=== PATIENT | female | born 1975 | race Two or more races ===

== ENCOUNTER 2025-01-24 06:03 | Day surgery (SDC) | payer OTHER ==
[2025-01-22 09:39] LABS: URINE APPEARANCE Clear; URINE BILIRRUBIN Negative (NEGATIVE); URINE BLOOD Negative; URINE COLOR Yellow; URINE GLUCOSE Negative (NEGATIVE); URINE KETONE Negative (NEGATIVE); URINE LEUKOCYTE Negative; URINE NITRATE Negative; URINE PROTEIN Negative (NEGATIVE); URINE UROBILINOGEN 0.2 E.U./dl
[2025-01-22 09:41] LABS: URINE BACTERIA 231.2 uL (0.0-1933); URINE EPITHELIAL CELLS 5.3 uL (0.0-38.8); URINE RBC 3.9 uL (0.0-20.8); URINE WBC 3.4 uL (0.0-23.2)
[2025-01-22 09:42] LABS: BASO % 0.4 % (0.1-1.2); EOS # 0.01 (0.04-0.54); EOS % 0.2 % (0.7-7.0); HEMATOCRIT 37.5 % (34.1-44.9); HEMOGLOBIN 11.9 g/dL (11.2-15.7); LYMPH # 1.95 (1.18-3.74); LYMPH % 34.9 % (19.3-53.1); MEAN CORPUSCULAR HEMOGLOBIN 26.4 pg (25.6-32.2); MONO # 0.34 (0.24-0.82); MONO % 6.1 % (4.7-12.5); NEUT # 3.25 (1.56-6.13); NEUT % 58.2 % (34.0-71.1); PLATELET COUNT 313 K/uL (163-369); RED BLOOD COUNT 4.51 M/uL (3.93-5.22); RED CELL DISTRIBUTION WIDTH 14.6 % (11.6-14.4)
[2025-01-22 10:01] LABS: INR 1.04; PARTIAL THROMBOPLASTIN TIME 30.1 SECONDS (22.0-34.0); PROTHROMBIN TIME 11.3 SECONDS (9.0-11.5)
[2025-01-22 10:25] LABS: COVID-19 AG NEGATIVE (NEGATIVE)
[2025-01-22 10:33] VITALS: BP 138/94
[2025-01-22 12:49] LABS: ALBUMIN 3.6 gm/dL (3.4-5.0); BILIRUBIN TOTAL 0.38 mg/dL (0.3-1.2); CALCIUM 9.4 mg/dL (8.5-10.1); CREATININE SERUM 0.64 mg/dL (0.55-1.02); GFR 97.83; POTASSIUM 4.33 mEq/L (3.5-5.1); TOTAL PROTEIN 7.6 gm/dL (6.4-8.2)
[~2025-01-24] VITALS: Ht 160 cm; Wt 73.5 kg
[~2025-01-24 06:03] MED LIST: AMBIEN10 MG PO; AMITRIPTYLINE100 MG PO; ANASTROZOLE1 MG PO
[2025-01-24] MEDS ORDERED: POVIDONE-IODINE SCRUB 118 ML BOTT TOP ONE (07:16)
[2025-01-24] MEDS ORDERED: BUPIVACAINE HCL/MPF 0.5% 30ML VIAL ONE (07:16)
[2025-01-24] MEDS ORDERED: POVIDONE-IODINE 118 ML BOTT TOP ONE ×4 (07:16→09:25)
[2025-01-24] MEDS ORDERED: CEFAZOLIN SODIUM 1,000 MG VIAL ONE (07:17)
[2025-01-24] MEDS ORDERED: GENTAMICIN SULFATE 40 MG/ML VIAL ONE (07:17)
[2025-01-24] MEDS ORDERED: CLINDAMYCIN PHOSPHATE 150 MG/ML (900mg) ONE (07:59)
[2025-01-24] MEDS ORDERED: TRANEXAMIC ACID 100MG/1ML (1000MG) AMPUL IV ONE (09:17)
[2025-01-24] MEDS ORDERED: ONDANSETRON HCL 2 MG/ML VIAL ONE (13:50)
[2025-01-24] MEDS ORDERED: MORPHINE SULFATE 4 MG/ML VIAL IV ONE ×2 (13:50→15:55)
== END 2025-01-24 17:15 | disposition home or self-care (01) ==
LOC: CIR.AMB 06:03
PROVIDERS: ATTEND Surgery
DX: C50.411 Malignant neoplasm of upper-outer quadrant of right female breast (principal); C50.312 Malignant neoplasm of lower-inner quadrant of left female breast; R59.0 Localized enlarged lymph nodes; R92.1 Mammographic calcification found on diagnostic imaging of breast; Z90.13 Acquired absence of bilateral breasts and nipples; N65.1 Disproportion of reconstructed breast

== ENCOUNTER 2025-02-25 06:00 | Day surgery (SDC) | payer OTHER ==
[2025-02-19 10:42] LABS: BASO % 0.5 % (0.1-1.2); EOS # 0.25 (0.04-0.54); EOS % 4.2 % (0.7-7.0); LYMPH # 1.68 (1.18-3.74); LYMPH % 28.5 % (19.3-53.1); MEAN PLATELET VOLUME 9.30 fl (9.4-12.4); MONO # 0.34 (0.24-0.82); MONO % 5.8 % (4.7-12.5); NEUT # 3.59 (1.56-6.13); NEUT % 60.8 % (34.0-71.1); RED CELL DISTRIBUTION WIDTH 14.9 % (11.6-14.4)
[2025-02-19 10:44] LABS: URINE APPEARANCE Clear; URINE BILIRRUBIN Negative (NEGATIVE); URINE BLOOD Negative; URINE COLOR Yellow; URINE GLUCOSE Negative (NEGATIVE); URINE KETONE Negative (NEGATIVE); URINE LEUKOCYTE Negative; URINE NITRATE Negative; URINE PROTEIN Negative (NEGATIVE); URINE UROBILINOGEN 0.2 E.U./dl
[2025-02-19 10:48] LABS: URINE BACTERIA 128.3 uL (0.0-1933); URINE EPITHELIAL CELLS 6.2 uL (0.0-38.8); URINE RBC 11.7 uL (0.0-20.8); URINE WBC 3.0 uL (0.0-23.2)
[2025-02-19 10:49] VITALS: BP 160/85
[2025-02-19 10:53] LABS: URINE CAST 0.43 uL (0.0-1.40)
[2025-02-19 11:02] LABS: INR 1.05
[2025-02-19 11:28] LABS: ALT/SGPT 14.0 U/L (12-78); AST/SGOT 10.0 U/L (15-37); BILIRUBIN TOTAL 0.41 mg/dL (0.3-1.2); BUN CREA RATIO 21.0 (7.0-25.0); CREATININE SERUM 0.67 mg/dL (0.55-1.02); GFR 92.79; GLOBULINA 3.8 G/DL (2.4-3.5); GLUCOSE FASTING 97.0 mg/dL (65-100); OSMOLALITY SERUM 282.0 MOSM/KG (275-295)
[~2025-02-25] VITALS: Ht 160 cm; Wt 72.6 kg
[~2025-02-25 06:00] MED LIST changes: +BOTOX100 UNIT IJ; +UBRELVY50 MG PO
[2025-02-25] MEDS ORDERED: HEPARIN SODIUM,PORCINE 500 UNITS/5 ML VIAL IV ONE (12:15)
[2025-02-25] MEDS ORDERED: BUPIVACAINE HCL 30 ML VIAL IJ ONE (12:15)
[2025-02-25] MEDS ORDERED: LIDOCAINE HCL 1%/EPINEPHRINE 20ML VIAL IJ ONE (12:15)
[2025-02-25] MEDS ORDERED: MORPHINE SULFATE 4 MG/ML VIAL IV ONE ×2 (12:35→13:20)
[2025-02-25] MEDS ORDERED: TRAM1TAB98 PO (12:37)
== END 2025-02-25 14:40 | disposition home or self-care (01) ==
LOC: CIR.AMB 06:00
PROVIDERS: ATTEND Surgery
DX: C50.411 Malignant neoplasm of upper-outer quadrant of right female breast (principal)
CPT/HCPCS: 36561; C1751